=== PATIENT | male | born 1940 | race Caucasian/White ===

== ENCOUNTER 2017-10-07 20:30 | Outpatient (CLI) | payer MEDICARE | END 2017-10-07 20:31 | disposition home or self-care (01) | LOC: SLEEPLAB 20:30 | PROVIDERS: ATTEND Family Medicine | DX: G47.33 Obstructive sleep apnea (adult) (pediatric) (principal); R53.83 Other fatigue; R51 Headache; E66.9 Obesity, unspecified; R06.83 Snoring; G47.00 Insomnia, unspecified; I10 Essential (primary) hypertension; E11.9 Type 2 diabetes mellitus without complications; G47.12 Idiopathic hypersomnia without long sleep time | CPT/HCPCS: 95810 ==

== ENCOUNTER 2019-05-30 06:33 | Outpatient (CLI) | payer MEDICARE ==
--- NOTE | 2019-05-30 09:30 | ULT ---
RENAL ULTRASOUND WITH RENAL DOPPLER STUDY: Hargrove scale images of both kidneys obtained. Color Doppler with spectral analysis and velocity record ings of renal arteries. INDICATION: Hypertension. FINDINGS: The right kidney measures 10 cm length. A 2.0 cyst superior pole. The left kidney measures 12 cm length. An echogenicity superior pole measuring in the 4 m range sugg ests a renal calculus. There is no hydronephrosis. Highest right renal artery velocity: 83.3 cm/s. Aorta: 48 cm/s. Right renal artery/aortic ratio: 1.73. Right arcuate artery resistive index: 0.72. Highest left renal artery velocity: 159 cm/s. Left renal artery/aortic ratio: 0.3. Left renal arcuate artery resistive index: 0.75. POS: [facility]
== END 2019-05-30 06:34 | disposition home or self-care (01) ==
LOC: BICULT 06:33
PROVIDERS: ATTEND Internal Medicine Nephrology
DX: I12.9 Hypertensive chronic kidney disease with stage 1 through stage 4 chronic kidney disease, or unspecified chronic kidney disease (principal); N18.3 Chronic kidney disease, stage 3 (moderate)
CPT/HCPCS: 76700; 76770

== ENCOUNTER 2021-08-03 13:17 | Outpatient (CLI) | payer MEDICARE | END 2021-08-03 13:18 | disposition home or self-care (01) | LOC: BICRAD 13:17 | PROVIDERS: ATTEND Physician Assistant | DX: M54.50 Low back pain, unspecified (principal); G89.29 Other chronic pain; M47.816 Spondylosis without myelopathy or radiculopathy, lumbar region | CPT/HCPCS: 72100 ==

== ENCOUNTER 2021-08-17 12:57 | Outpatient (CLI) | payer MEDICARE | END 2021-08-17 12:58 | disposition home or self-care (01) | LOC: BICMRI 12:57 | PROVIDERS: ATTEND Physician Assistant | DX: M54.50 Low back pain, unspecified (principal); G89.29 Other chronic pain; R93.7 Abnormal findings on diagnostic imaging of other parts of musculoskeletal system; M48.061 Spinal stenosis, lumbar region without neurogenic claudication | CPT/HCPCS: 72148 ==

== ENCOUNTER 2022-05-23 07:45 | Emergency (ER) | payer MEDICARE ==
[2022-05-23 08:08] LABS: #Basophils 0.1 thou/uL (0.0-0.2); #Eosinphils 0.3 thou/uL (0.0-0.7); #Lymphocytes 1.6 thou/uL (1.20-3.40); #Monocytes 0.8 thou/uL (0.11-0.59); #Neutrophils 8.3 thou/uL (1.40-6.50); %Basophils 0.6 % (0.0-1.0); %Lymphocytes 14.7 % (21.0-51.0); %Monocytes 7.2 % (0.0-10.0); %Neutrophils 74.6 % (42.0-75.0); Hemoglobin 13.4 g/dL (14.0-18.0); Mean Corpuscular HGB CONC 33.7 g/dL (32.0-36.0); Mean Corpuscular Hemoglobin 29.4 pg (27.0-31.0); Mean Corpuscular Volume 87.3 fL (78.0-98.0); Mean Platelet Volume 7.3 fL (7.4-10.4); Platelet Count 296 thou/uL (130-400); RBC Distribution Width 12.5 % (11.5-14.5); Red Blood Cell (RBC) Count 4.57 mill/uL (4.70-6.10); White Blood Cell (WBC) Count 11.1 thou/uL (4.8-10.8)
[2022-05-23 08:28] LABS: ALT (SGPT) 12 U/L (8-55); AST (SGOT) 12 U/L (5-34); Albumin 3.9 g/dL (3.4-4.8); Alkaline Phosphatase 74 U/L (40-110); Anion Gap 15 mmol/L (10-20); BUN (Urea Nitrogen) 22 mg/dL (8.4-25.7); Bilirubin, Total 0.4 mg/dL (0.2-1.2); Calc. Creatinine Clearance 0 mL/min (70-130); Calcium 9.1 mg/dL (7.8-10.44); Carbon Dioxide 18 mmol/L (23-31); Chloride 109 mmol/L (98-107); Estimated GFR 59; Globulin 3.1 g/dL (2.4-3.5); Glucose 108 mg/dL (83-110); Potassium 4.2 mmol/L (3.5-5.1); Sodium 138 mmol/L (136-145)
[2022-05-23 09:16] LABS: Prothrombin Time 12.7 sec (12.0-14.7)
[2022-05-23 09:17] LABS: PTT 35.8 sec (22.9-36.1)
[2022-05-23] MEDS ORDERED: Dexamethasone 10 MG/ML VIAL ONE (12:20)
== END 2022-05-23 13:25 | disposition home or self-care (01) ==
LOC: ERS 07:45
DX: M51.36 Other intervertebral disc degeneration, lumbar region (principal); R20.2 Paresthesia of skin; E78.5 Hyperlipidemia, unspecified; E11.9 Type 2 diabetes mellitus without complications; I10 Essential (primary) hypertension; Z79.4 Long term (current) use of insulin; Z79.899 Other long term (current) drug therapy; Z79.82 Long term (current) use of aspirin
CPT/HCPCS: 36416; 70450; 71045; 72131; 80053; 84484; 85025; 85610; 85652; 85730; 93005; 93923; 96374; J1100

== ENCOUNTER 2022-08-14 15:56 | Emergency (ER) | payer MEDICARE ==
[2022-08-14] MEDS ORDERED: FENTANYL 50 MCG/ML 1 ML VIAL ONE (16:21)
[2022-08-14] MEDS ORDERED: Boostrix 0.5 ML (Tdap) VIAL (>/=7 yrs of age) ONE (16:48)
[2022-08-14] MEDS ORDERED: Ondansetron PF 4 MG/2 ML Vial ONE (16:48)
== END 2022-08-14 19:14 | disposition home or self-care (01) ==
LOC: ERS 15:56
DX: S52.571A Other intraarticular fracture of lower end of right radius, initial encounter for closed fracture (principal); S00.01XA Abrasion of scalp, initial encounter; E11.9 Type 2 diabetes mellitus without complications; E78.5 Hyperlipidemia, unspecified; I10 Essential (primary) hypertension; W11.XXXA Fall on and from ladder, initial encounter; Z79.82 Long term (current) use of aspirin; Z79.4 Long term (current) use of insulin; Z79.899 Other long term (current) drug therapy
CPT/HCPCS: 29105; 70450; 71045; 72125; 72170; 73110; 90715; 93005; 96374; 99284; J3010; J2405

== ENCOUNTER 2022-08-15 16:29 | Emergency (ER) | payer MEDICARE | END 2022-08-15 19:51 | disposition home or self-care (01) | LOC: ERS 16:29 | DX: S62.101P Fracture of unspecified carpal bone, right wrist, subsequent encounter for fracture with malunion (principal); Z47.89 Encounter for other orthopedic aftercare; E11.9 Type 2 diabetes mellitus without complications; E78.5 Hyperlipidemia, unspecified; I10 Essential (primary) hypertension; Z79.4 Long term (current) use of insulin; Z79.899 Other long term (current) drug therapy; Z79.82 Long term (current) use of aspirin; X58.XXXD Exposure to other specified factors, subsequent encounter | CPT/HCPCS: 29125 ==